=== PATIENT | female | born 1970 | race American Indian/Alaskan Native ===

== ENCOUNTER 2021-04-26 19:26 | Observation (INO) | payer OTHER ==
[2021-04-26] MEDS ORDERED: EPINEPHrine/PF 1 MG/1 ML INJ SUB-Q ONE (19:37)
[2021-04-26] MEDS ORDERED: FAMOTIDINE 20 MG/2 ML INJ IV ONE (19:37)
[2021-04-26] MEDS ORDERED: diphenhydrAMINE 50 MG/ML VIAL IV ONE (19:37)
[2021-04-26] MEDS ORDERED: methylPREDNISolone Sod Succinate 125 MG/2 ML INJ IV ONE (19:37)
--- NOTE | 2021-04-26 19:39 | Emergency Department Report ---
HPI - General Chief Complaint: Allergic Reaction - HPI HPI: 51-year-old obese female with a past medical history of asthma, morbid obesity, PFO, COPD, GERD, and hypertension presents to the hospital with acute allergic reaction that started within 10 to 15 minutes of taking Motrin. Patient has had a similar allergic reaction due to aspirin. Patient has taken Motrin in the pas t without allergic reaction. Patient complains of swelling to lips, tongue, and throat with shortness of breath. Previous history of intubation secondary to asthma allergy. ED Past Medical Hx - Past Medical History Previous Medical History?: Yes Hx Hypertension: Yes Hx GERD: Yes Hx Asthma: Yes Hx COPD: Yes Hx Tuberculosis: No - Surgical History Past Surgical History?: Yes Hx Appendectomy: Yes - Social History Smoking Status: Never Smoker - Medications Home Medications: Home Medications Medication Instructions Recorded Confirmed Last Taken Type Clopidogrel Bisulfate [Clopidogrel] 75 mg PO DAILY 08/11/14 08/11/14 07/27/14 History Metoprolol Tartrate 25 mg PO BID 08/11/14 08/11/14 07/27/14 History Vitamin D2 50,000 units PO QWEEK 08/11/14 08/11/14 07/28/14 History ED Review of Systems ROS: Stated complaint: ALLERGIC REACTION Other details as noted in HPI Comment: All other systems reviewed and negative Physical Exam - Physical Exam Vital Signs: Vital Signs 04/26/21 19:29 Temperature 98.1 F Pulse Rate 79 Respiratory 20 Rate Blood Pressure 178/85 [Left] O2 Sat by Pulse 98 Oximetry Physical Exam: General: No acute distress Head: Atraumatic Face: Swelling to right side of face Eyes: normal appearance ENT: Moist mucous membranes, swelling to the lips, no noticeable tongue swelling, possible swelling to submental area. No visualized swelling to posterior pharynx with use of tongue depressor. Positive hoarseness when speaking Neck: Normal appearance, no midline tenderness Chest: Clear to auscultation bilaterally CV: Regular rate and rhythm Abdomen: Soft, normal bowel sounds, nontender, nondistended, no rebound or guarding Back: Normal inspection Extremity: Normal inspection, full range of motion Neuro: Alert O x 3, no facial asymmetry, speech clear, no gross motor sensory deficit Psych: Appropriate behavior Skin: Generalized hives ED Course Vital Signs 04/26/21 19:29 Temperature 98.1 F Pulse Rate 79 Respiratory 20 Rate Blood Pressure 178/85 [Left] O2 Sat by Pulse 98 Oximetry - Reevaluation(s) Reevaluation #1: 04/26/21 23:37 Patient reevaluated. Patient still feels like there is a lump in her throat still but her voice is less hoarsem - Consultations Consultation #1: 04/26/21 8:45 pm case d/w educational administrator anesthesiologist to inform him of possible intubation assistance. We will call him if needed ED Medical Decision Making - Lab Data Result diagrams: 04/26/21 21:41 04/26/21 21:41 - Medical Decision Making Patient was observed and reevaluated during ED stay. She continues to feel that there is a lump in her throat but throughout ED stay with treatment of Solu- Medrol, Pepcid, Benadryl, epinephrine her voice has become less hoarse and clear. Hives also improved. Difficult airway cart and intubation set up in room in during ED stay. Anesthesia on standby. Patient did not require intubation during ED stay since she seems to be improving however, given history of severe allergic reaction to aspirin requiring intubation patient will be admitted to the hospital for further observation and treatment Critical Care Time: No Critical care attestation.: If time is entered above; I have spent that time in minutes in the direct care of this critically ill patient, excluding procedure time. ED Disposition Clinical Impression: Acute allergic reaction, Hoarseness, Hives, Morbid obesity Disposition: 01 HOME / SELF CARE / HOMELESS Is pt being admited?: Yes Time of Disposition: 23:43
[2021-04-26 22:08] LABS: Basophils % (Auto) 0.2 % (0.0-1.8); Eosinophils # (Auto) 0.1 K/mm3 (0.0-0.4); Eosinophils % (Auto) 1.7 % (0.0-4.3); Hematocrit 39.8 % (30.3-42.9); Hemoglobin 12.5 gm/dl (10.1-14.3); Lymphocytes # (Auto) 3.1 K/mm3 (1.2-5.4); Lymphocytes % (Auto) 36.6 % (13.4-35.0); Mean Corpuscular HGB Conc 32 % (30-34); Mean Corpuscular Volume 93 fl (79-97); Monocytes # (Auto) 0.4 K/mm3 (0.0-0.8); Platelet Count 275 K/mm3 (140-440); Red Blood Count 4.27 M/mm3 (3.65-5.03); Red Cell Distribution Width 14.3 % (13.2-15.2)
[2021-04-26 22:11] LABS: Blood Urea Nitrogen 12 mg/dL (7-17); Calcium 8.6 mg/dL (8.4-10.2); Hemolysis Index 13
[2021-04-26 22:12] LABS: BUN/Creatinine Ratio 24
--- NOTE | 2021-04-27 00:28 | History and Physical Report ---
History of Present Illness Date of examination: 04/26/21 Date of admission: 04/26/21 23:44 Chief complaint: Allergic reaction History of present illness: 51-year-old female with known history of asthma, GERD, hypertension presenting to the emergency room today with complaints of acute allergic reaction started about 10 to 15 minutes after taking Motrin. Patient has known allergy to aspirin and has had a similar episode before which she took aspirin. She raghueve r indicates that she has had Motrin in the past without any reaction. Patient has had swelling of her lips, tongue and throat and accompanying shortness of breath prior to arrival in the emergency room. Patient has had a previous intubation in the past secondary to asthma/allergy. Patient has had some Solu-Medrol, Pepcid and epinephrine with significant improvement. Work-up in the emergency room today, labs were unremarkable. Patient being admitted for further observation. Past History Past Medical History: COPD, hypertension, other (Asthma) Past Surgical History: appendectomy Social history: no significant social history Family history: no significant family history Medications and Allergies Allergies Allergy/AdvReac Type Severity Reaction Status Date / Time aspirin Allergy Swelling/ Verified 08/11/14 10:04 THROAT CLOSES Sulfa (Sulfonamide Allergy Hives Verified 08/11/14 10:04 Antibiotics) Home Medications Medication Instructions Recorded Confirmed Last Taken Type Clopidogrel Bisulfate [Clopidogrel] 75 mg PO DAILY 08/11/14 08/11/14 07/27/14 History Metoprolol Tartrate 25 mg PO BID 08/11/14 08/11/14 07/27/14 History Vitamin D2 50,000 units PO QWEEK 08/11/14 08/11/14 07/28/14 History Active Meds: Active Medications Acetaminophen (Acetaminophen 325 Mg Tab) 650 mg PO Q6H PRN PRN Reason: Pain MILD(1-3)/Fever >100.5/EDGAR Diphenhydramine HCl (Diphenhydramine 50 Mg/Ml Vial) 25 mg IV Q6H PRN PRN Reason: Itching Enoxaparin Sodium (Enoxaparin 40 Mg/0.4 Ml Inj) 40 mg SUB-Q QDAY@2200 DOROTEO; Protocol Sodium Chloride (Nacl 0.9% 1000 Ml) 1,000 mls @ 75 mls/hr IV DIRECT DOROTEO Magnesium Hydroxide (Magnesium Hydroxide (Mom) Oral Liqd Udc) 30 ml PO Q4H PRN PRN Reason: Constipation Morphine Sulfate (Morphine 2 Mg/1 Ml Inj) 2 mg IV Q4H PRN PRN Reason: Pain, Moderate (4-6) Morphine Sulfate (Morphine 4 Mg/1 Ml Inj) 4 mg IV Q4H PRN PRN Reason: Pain , Severe (7-10) Ondansetron HCl (Ondansetron 4 Mg/2 Ml Inj) 4 mg IV Q8H PRN PRN Reason: Nausea And Vomiting Sodium Chloride (Sodium Chloride 0.9% 10 Ml Flush Syringe) 10 ml IV BID DOROTEO Sodium Chloride (Sodium Chloride 0.9% 10 Ml Flush Syringe) 10 ml IV PRN PRN PRN Reason: LINE FLUSH Review of Systems Constitutional: no fever, no chills Ears, nose, mouth and throat: hoarseness, swelling in mouth, swelling in throat, no nasal congestion, no sore throat Cardiovascular: no chest pain, no palpitations Respiratory: shortness of breath, no cough Gastrointestinal: no abdominal pain, no nausea, no vomiting, no diarrhea Genitourinary Female: no pelvic pain, no flank pain, no dysuria, no hematuria Musculoskeletal: no neck pain, no low back pain Integumentary: rash, pruritis Neurological: no headaches, no confusion Psychiatric: no anxiety, no depression Endocrine: no polyphagia, no polydipsia, no polyuria, no nocturia Allergic/Immunologic: urticaria, angioedema Exam - Constitutional Vitals: Temp Pulse Resp BP Pulse Ox 98.1 F 63 20 162/82 99 04/26/21 19:29 04/26/21 23:16 04/26/21 23:16 04/26/21 23:16 04/26/21 23:16 General appearance: Present: no acute distress, well-nourished, obese - EENT Eyes: Present: PERRL, EOM intact ENT: hearing intact, clear oral mucosa, dentition normal - Neck Neck: Present: supple, normal ROM - Respiratory Respiratory effort: normal Respiratory: bilateral: CTA - Cardiovascular Rhythm: regular Heart Sounds: Present: S1 & S2. Absent: gallop, systolic murmur, diastolic murmur, rub, click - Extremities Extremities: no ischemia, pulses intact, pulses symmetrical, No edema, normal temperature, normal color, Full ROM Peripheral Pulses: within normal limits - Abdominal General gastrointestinal: Present: soft, non-tender, non-distended, normal bowel sounds. Absent: mass - Integumentary Integumentary: Present: clear, warm, dry, normal turgor. Absent: rash - Musculoskeletal Musculoskeletal: strength equal bilaterally - Psychiatric Psychiatric: appropriate mood/affect, intact judgment & insight, memory intact, cooperative - Neurologic Neurologic: CNII-XII intact, no focal deficits, moves all extremities Results - Labs CBC & Chem 7: 04/26/21 21:41 04/26/21 21:41 Labs: Abnormal lab results 04/26/21 04/26/21 Range/Units 21:41 21:41 Lymph % (Auto) 36.6 H (13.4-35.0) % Carbon Dioxide 21 L (22-30) mmol/L Creatinine 0.5 L (0.6-1.2) mg/dL Glucose 133 H (65-100) mg/dL Assessment and Plan - Patient Problems (1) Acute allergic reaction Current Visit: Yes Status: Acute Plan to address problem: Patient has had epinephrine, Pepcid and Solu-Medrol with significant improvement. We will monitor closely. (2) Morbid obesity Current Visit: Yes Status: Acute Plan to address problem: Lifestyle modification encouraged. Dietary consult requested. (3) DVT prophylaxis Current Visit: Yes Status: Acute Plan to address problem: Patient placed on subcutaneous Lovenox. (4) Full code status Current Visit: Yes Status: Acute Plan to address problem: Patient is full code.
[2021-04-27] MEDS ORDERED: ONDANSETRON 4 MG/2 ML INJ IV PRN (01:00)
[2021-04-27] MEDS ORDERED: ACETAMINOPHEN 325 MG TAB PO PRN (01:00)
[2021-04-27] MEDS ORDERED: MAGNESIUM HYDROXIDE (MOM) ORAL LIQD UDC PO PRN (01:00)
[2021-04-27] MEDS ORDERED: MORPHINE 2 MG/1 ML INJ IV PRN (01:00)
[2021-04-27] MEDS ORDERED: MORPHINE 4 MG/1 ML INJ IV PRN (01:00)
[2021-04-27] MEDS: diphenhydrAMINE 50 MG/ML VIAL IV PRN ×3 (02:53→19:23)
[2021-04-27] MEDS ORDERED: DEXAMETHASONE 4 MG TAB PO ONE (13:00)
--- NOTE | 2021-04-27 13:18 | Consultation ---
History of Present Illness Consult date: 04/27/21 Reason for consult: dyspnea, other History of present illness: History of present illness: 51-year-old female with known history of asthma, GERD, hypertension presenting to the emergency room today with complaints of acute allergic reaction started about 10 to 15 minutes after taking Motrin. Patient has known allergy to aspirin and has had a similar episode before which she took aspirin. She however indicates that she has had Motrin in the past without any reaction. Patient has had swelling of her lips, tongue and throat and accompanying shortness of breath prior to arrival in the emergency room. Patient reports she has been allergic to aspirin in the past with similar reaction. However, she never had reaction to Motrin which she takes on a regular basis. Patient reports since admission symptoms have improved to some degree however she is still having trouble swallowing and feels her lips are still swollen Patient has had a previous intubation in the past secondary to asthma/allergy. Patient has had some Solu-Medrol, Pepcid and epinephrine with significant improvement. Work-up in the emergency room today, labs were unremarkable. Patient being admitted for further observation. Patient has history of asthma and has been on Flovent and albuterol on as needed basis Past History Past Medical History: hypertension, other (Asthma, ) Past Surgical History: appendectomy, Other (Has cardiac surgery for I believe patent foramen ovale.) Social history: no significant social history, other (Non-smoker nondrinker) Family history: no significant family history Medications and Allergies Allergies Allergy/AdvReac Type Severity Reaction Status Date / Time aspirin Allergy Swelling/ Verified 08/11/14 10:04 THROAT CLOSES Sulfa (Sulfonamide Allergy Hives Verified 08/11/14 10:04 Antibiotics) Home Medications Medication Instructions Recorded Confirmed Last Taken Type Clopidogrel Bisulfate [Clopidogrel] 75 mg PO DAILY 08/11/14 04/27/21 07/27/14 History Metoprolol Tartrate 25 mg PO BID 08/11/14 04/27/21 07/27/14 History Vitamin D2 50,000 units PO QWEEK 08/11/14 04/27/21 07/28/14 History Active Meds: Active Medications Acetaminophen (Acetaminophen 325 Mg Tab) 650 mg PO Q6H PRN PRN Reason: Pain MILD(1-3)/Fever >100.5/EDGAR Clopidogrel Bisulfate (Clopidogrel 75 Mg Tab) 75 mg PO DAILY DOROTEO Diphenhydramine HCl (Diphenhydramine 50 Mg/Ml Vial) 25 mg IV Q6H PRN PRN Reason: Itching Last Admin: 04/27/21 10:53 Dose: 25 mg Documented by: Enoxaparin Sodium (Enoxaparin 40 Mg/0.4 Ml Inj) 40 mg SUB-Q QDAY@2200 DOROETO; Protocol Sodium Chloride (Nacl 0.9% 1000 Ml) 1,000 mls @ 75 mls/hr IV DIRECT DOROTEO Magnesium Hydroxide (Magnesium Hydroxide (Mom) Oral Liqd Udc) 30 ml PO Q4H PRN PRN Reason: Constipation Metoprolol Tartrate (Metoprolol Tartrate 25 Mg Tab) 25 mg PO BID DOROTEO Morphine Sulfate (Morphine 2 Mg/1 Ml Inj) 2 mg IV Q4H PRN PRN Reason: Pain, Moderate (4-6) Morphine Sulfate (Morphine 4 Mg/1 Ml Inj) 4 mg IV Q4H PRN PRN Reason: Pain , Severe (7-10) Ondansetron HCl (Ondansetron 4 Mg/2 Ml Inj) 4 mg IV Q8H PRN PRN Reason: Nausea And Vomiting Review of Systems All systems: negative Constitutional: weight gain Ears, nose, mouth and throat: swelling in mouth, swelling in throat, other (Difficulty swallowing) Physical Examination Vital signs: Vital Signs Temp Pulse Resp BP Pulse Ox 98.1 F 79 20 178/85 98 04/26/21 19:29 04/26/21 19:29 04/26/21 19:29 04/26/21 19:29 04/26/21 19:29 General appearance: no acute distress, other (Moderate to severely obese) Eyes: non-icteric ENT: oropharynx moist, other (Crowded oropharynx, mild swelling of lips) Neck: supple, no lymphadenopathy, no JVD Ascultation: Bilateral: clear Cardiovascular: regular rate and rhythm Gastrointestinal: normoactive bowel sounds, soft, non-tender, other (Obese) Integumentary: normal Extremities: no cyanosis, no edema, pink and warm Musculoskeletal: no deformities Gait: other normal mental status (Not examined), non-focal exam mood appropriate Results - Laboratory Findings CBC and BMP: 04/26/21 21:41 04/26/21 21:41 Abnormal lab findings: Abnormal Labs 04/26/21 04/26/21 21:41 21:41 Lymph % (Auto) 36.6 H Carbon Dioxide 21 L Creatinine 0.5 L Glucose 133 H Assessment and Plan Impression: Angioedema secondary to NSAID History of aspirin allergy Mild intermittent uncomplicated asthma Obesity Hypertension Suspect obstructive sleep apnea Recommendation: Patient to be treated with IV steroids, antihistamines, H2 jonas such as Pepcid and Benadryl on as needed basis. Limit oral intake to liquids until swallow swallowing is improved. Consider adding Singulair which is seems to be effective with people with aspirin allergy. Consider further evaluation and screening for obstructive sleep apnea.
[2021-04-27] MEDS: methylPREDNISolone Sod Succinate 40 MG/1 ML INJ IV SCH (14:01)
--- NOTE | 2021-04-27 15:10 | Discharge Summary ---
Providers - Providers Date of Admission: 04/26/21 23:44 Date of discharge: 04/27/21 Attending physician: JOE RODRÍGUEZ 04/27/21 00:17 Consult to Dietitian/Nutrition [CONS] Routine Physician Instructions: Reason For Exam: Reason for Consult: Diet education Consult to Physician [CONS] Routine Comment: Consulting Provider: DESTINY CUMMINGS Physician Instructions: Reason For Exam: Acute Allergic reaction, Resp. Distress Primary care physician: SHAHAB VILLALPANDO MD Hospitalization Disposition: HOME / SELF CARE / HOMELESS Final Discharge Diagnosis (Prints w/discharge instructions): Angioedema/allergic reaction to ibuprofen/improved. History of aspirin allergy. Morbid obesity ; BMI 48.3. suspected obstructive sleep apnea. GERD. History of bronchial asthma. Hypertension Core Measure Documentation - Palliative Care Palliative Care/ Comfort Measures: Not Applicable - Core Measures Any of the following diagnoses?: none Exam - Constitutional Vitals: Temp Pulse Resp BP Pulse Ox 98.1 F 65 13 151/81 98 04/26/21 19:29 04/27/21 14:46 04/27/21 14:46 04/27/21 14:46 04/27/21 14:46 General appearance: Present: no acute distress, well-nourished - EENT Eyes: Present: PERRL, EOM intact - Neck Neck: Present: supple, normal ROM - Respiratory Respiratory effort: normal Respiratory: bilateral: diminished, negative: rales, rhonchi, wheezing - Cardiovascular Rhythm: regular Heart Sounds: Present: S1 & S2 - Extremities Extremities: no ischemia, No edema - Abdominal General gastrointestinal: Present: soft, non-tender, non-distended, normal bowel sounds Plan Follow up with: SHAHAB FRANKLIN MD [Primary Care Provider] - 3-5 Days
--- NOTE | 2021-04-27 15:39 | Progress Note ---
Assessment and Plan Assessment and plan: --Angioedema/ acute allergic reaction to ibuprofen Current Visit: Yes Status: Acute Patient received epinephrine, Pepcid and Solu-Medrol with significant improvement. We will continue IV Solu-Medrol, Benadryl Pepcid And supportive care Patient has history of aspirin allergy Clear liquids/soft diet as tolerated -- morbid obesity BMI 48.3 Current Visit: Yes Status: Acute Lifestyle modification encouraged. Dietary modification, exercise as tolerated And weight reduction when medically stable --History of bronchial asthma; Current Visit: Yes Status: Chronic Pulmonary evaluation noted and appreciated --Hypertension; moderate control Current Visit: Yes Status: Chronic DC metoprolol, add hydralazine, closely monitor --GERD Current Visit: Yes Status: Chronic Pepcid --possible obstructive sleep apnea Current Visit: Yes Status: Chronic Patient needs outpatient sleep study possible CPAP BiPAP at night --DVT prophylaxis Current Visit: Yes Status: Acute Subcutaneous Lovenox. --full code status Current Visit: Yes Status: Acute Patient is full code. Closely monitor the patient and adjust management as needed Plan of care reviewed with the patient and her nurse Possible discharge in 1 to 2 days if stable History Interval history: I have seen and examined the patient in ER awaiting room assignment Patient was admitted with allergic reaction/angioedema to ibuprofen Feels slightly better, facial and oral swelling significantly improved. Denies any shortness of breath or difficulty swallowing Hospitalist Physical - Constitutional Vitals: Temp Pulse Resp BP Pulse Ox 98.1 F 65 13 151/81 98 04/26/21 19:29 04/27/21 14:46 04/27/21 14:46 04/27/21 14:46 04/27/21 14:46 General appearance: Present: no acute distress, well-nourished, obese (Morbidly obese) - EENT Eyes: Present: PERRL, EOM intact - Neck Neck: Present: other (Mild facial swelling) - Respiratory Respiratory effort: normal Respiratory: bilateral: CTA, diminished, negative: rales, rhonchi, wheezing - Cardiovascular Rhythm: regular Heart Sounds: Present: S1 & S2 - Extremities Extremities: no ischemia, No edema - Abdominal General gastrointestinal: soft, non-tender, non-distended, normal bowel sounds - Integumentary Integumentary: Present: clear, warm - Psychiatric Psychiatric: appropriate mood/affect, cooperative - Neurologic Neurologic: moves all extremities Results - Labs CBC & Chem 7: 04/26/21 21:41 04/26/21 21:41 Labs: Laboratory Last Values WBC 8.5 K/mm3 (4.5-11.0) 04/26/21 21:41 RBC 4.27 M/mm3 (3.65-5.03) 04/26/21 21:41 Hgb 12.5 gm/dl (10.1-14.3) 04/26/21 21:41 Hct 39.8 % (30.3-42.9) 04/26/21 21:41 MCV 93 fl (79-97) 04/26/21 21:41 MCH 29 pg (28-32) 04/26/21 21:41 MCHC 32 % (30-34) 04/26/21 21:41 RDW 14.3 % (13.2-15.2) 04/26/21 21:41 Plt Count 275 K/mm3 (140-440) 04/26/21 21:41 Lymph % (Auto) 36.6 % (13.4-35.0) H 04/26/21 21:41 [place] % (Auto) 5.0 % (0.0-7.3) 04/26/21 21:41 Eos % (Auto) 1.7 % (0.0-4.3) 04/26/21 21:41 Baso % (Auto) 0.2 % (0.0-1.8) 04/26/21 21:41 Lymph # (Auto) 3.1 K/mm3 (1.2-5.4) 04/26/21 21:41 [place] # (Auto) 0.4 K/mm3 (0.0-0.8) 04/26/21 21:41 Eos # (Auto) 0.1 K/mm3 (0.0-0.4) 04/26/21 21:41 Baso # (Auto) 0.0 K/mm3 (0.0-0.1) 04/26/21 21:41 Seg Neutrophils % 56.5 % (40.0-70.0) 04/26/21 21:41 Seg Neutrophils # 4.8 K/mm3 (1.8-7.7) 04/26/21 21:41 Sodium 139 mmol/L (137-145) 04/26/21 21:41 Potassium 3.8 mmol/L (3.6-5.0) 04/26/21 21:41 Chloride 104.7 mmol/L (98-107) 04/26/21 21:41 Carbon Dioxide 21 mmol/L (22-30) L 04/26/21 21:41 Anion Gap 17 mmol/L 04/26/21 21:41 BUN 12 mg/dL (7-17) 04/26/21 21:41 Creatinine 0.5 mg/dL (0.6-1.2) L 04/26/21 21:41 Estimated GFR > 60 ml/min 04/26/21 21:41 BUN/Creatinine Ratio 24 % 04/26/21 21:41 Glucose 133 mg/dL (65-100) H 04/26/21 21:41 Calcium 8.6 mg/dL (8.4-10.2) 04/26/21 21:41 Active Medications - Current Medications Current Medications: Generic Name Dose Route Start Last Admin Trade Name Freq PRN Reason Stop Dose Admin Acetaminophen 650 mg 04/27/21 01:00 Acetaminophen 325 Mg Tab PO Q6H PRN Pain MILD(1-3)/Fever >100.5/EDGAR Cetirizine HCl 10 mg 04/28/21 10:00 Cetirizine 10 Mg Tab PO QDAY [facility] Clopidogrel Bisulfate 75 mg 04/28/21 10:00 Clopidogrel 75 Mg Tab PO DAILY [facility] Diphenhydramine HCl 25 mg 04/27/21 01:00 04/27/21 10:53 Diphenhydramine 50 Mg/Ml Vial IV 25 mg Q6H PRN Administration Itching Enoxaparin Sodium 40 mg 04/27/21 22:00 Enoxaparin 40 Mg/0.4 Ml Inj SUB-Q QDAY@2200 [facility] Protocol Famotidine 20 mg 04/27/21 22:00 Famotidine 20 Mg Tab PO BID [facility] Sodium Chloride 1,000 mls @ 75 mls/hr 04/27/21 01:00 Nacl 0.9% 1000 Ml IV DIRECT DOROTEO Magnesium Hydroxide 30 ml 04/27/21 01:00 Magnesium Hydroxide (Mom) Oral Liqd Udc PO Q4H PRN Constipation Methylprednisolone Sodium Succinate 40 mg 04/27/21 14:00 04/27/21 14:01 Methylprednisolone Sod Succinate 40 Mg/1 Ml Inj IV 40 mg Q8H DOROTEO Administration Metoprolol Tartrate 25 mg 04/27/21 22:00 Metoprolol Tartrate 25 Mg Tab PO BID DOROTEO Montelukast Sodium 10 mg 04/27/21 22:00 Montelukast 10 Mg Tab PO QHS DOROTEO Morphine Sulfate 2 mg 04/27/21 01:00 Morphine 2 Mg/1 Ml Inj IV Q4H PRN Pain, Moderate (4-6) Morphine Sulfate 4 mg 04/27/21 01:00 Morphine 4 Mg/1 Ml Inj IV Q4H PRN Pain , Severe (7-10) Ondansetron HCl 4 mg 04/27/21 01:00 Ondansetron 4 Mg/2 Ml Inj IV Q8H PRN Nausea And Vomiting Nutrition/Malnutrition Assess - Dietary Evaluation Nutrition/Malnutrition Findings: Nutrition Notes Start: 04/27/21 13:00 Freq: Status: Active Protocol: Document 04/27/21 13:00 [facility] (Rec: 04/27/21 13:01 [facility] [id number]) Nutrition Notes Need for Assessment generated from: MD Order,Education Initial or Follow up Brief Note Current Diet Cl liq Subjective/Other Information RD consulted for diet education. Pt in ED at this time. Nutrition Intervention Follow-Up By: 05/02/21 Additional Comments F/U: diet advancement, transfer to medical floor, diet education needs
[2021-04-27] MEDS ORDERED: hydrALAZINE 20 MG/1 ML INJ IV PRN (15:48)
[2021-04-27] MEDS: hydrALAZINE 25 MG TAB PO SCH ×2 (17:12→21:50)
[2021-04-27] MEDS: SODIUM CHLORIDE 0.9% 1000 ML 1,000 ML IV SCH (20:08)
[2021-04-27] MEDS: FAMOTIDINE 20 MG TAB PO SCH (21:45)
[2021-04-27] MEDS ORDERED: MONTELUKAST 10 MG TAB PO SCH (22:00)
[2021-04-27] MEDS ORDERED: METOPROLOL TARTRATE 25 MG TAB PO SCH (22:00)
[2021-04-27] MEDS ORDERED: ENOXAPARIN 40 MG/0.4 ML INJ SUB-Q SCH (22:00)
[2021-04-28] MEDS: methylPREDNISolone Sod Succinate 40 MG/1 ML INJ IV SCH ×3 (00:54→14:06)
[2021-04-28] MEDS: hydrALAZINE 25 MG TAB PO SCH ×2 (06:27→14:06)
[2021-04-28] MEDS: FAMOTIDINE 20 MG TAB PO SCH (09:15)
[2021-04-28] MEDS: SODIUM CHLORIDE 0.9% 1000 ML 1,000 ML IV SCH (09:20)
[2021-04-28] MEDS ORDERED: CLOPIDOGREL 75 MG TAB PO SCH (10:00)
[2021-04-28] MEDS ORDERED: CETIRIZINE 10 MG TAB PO SCH (10:00)
--- NOTE | 2021-04-28 13:11 | Progress Note ---
Assessment and Plan Impression: Angioedema secondary to NSAID History of aspirin allergy Mild intermittent uncomplicated asthma Obesity Hypertension Suspect obstructive sleep apnea Recommendation: Patient patient can go home on oral prednisone taper, antihistamines, H2 jonas such as Pepcid and Benadryl on as needed basis. Recommended to follow-up in our office. Consider adding Singulair which is seems to be effective with people with aspirin allergy. Consider further evaluation and screening for obstructive sleep apnea. Subjective Date of service: 04/28/21 Interval history: Patient feeling better swallowing has improved. Objective Vital Signs - 12hr 04/28/21 04/28/21 04:57 08:01 Temperature 97.8 F Pulse Rate 56 L Respiratory 18 Rate Blood Pressure 151/79 O2 Sat by Pulse 94 96 Oximetry Constitutional: no acute distress, other (Moderate to severely obese) Eyes: non-icteric ENT: oropharynx moist, other (Crowded oropharynx, mild swelling of lips) Neck: supple, no lymphadenopathy, no JVD Ascultation: Bilateral: clear Cardiovascular: regular rate and rhythm Gastrointestinal: normoactive bowel sounds, soft, non-tender, other (Obese) Integumentary: normal Extremities: no cyanosis, no edema, pink and warm Neurologic: normal mental status (Not examined), non-focal exam Psychiatric: mood appropriate CBC and BMP: 04/26/21 21:41 04/26/21 21:41 Abnormal lab findings: Abnormal Labs 04/26/21 12 21:41 21:41 Lymph % (Auto) 36.6 H Carbon Dioxide 21 L Creatinine 0.5 L Glucose 133 H
--- NOTE | 2021-04-28 13:55 | Discharge Summary ---
Providers - Providers Date of Admission: 04/26/21 23:44 Date of discharge: 04/28/21 Attending physician: JOE RODRÍGUEZ 04/27/21 00:17 Consult to Dietitian/Nutrition [CONS] Routine Physician Instructions: Reason For Exam: Reason for Consult: Diet education Consult to Physician [CONS] Routine Comment: Consulting Provider: DESTINY CUMMINGS Physician Instructions: Reason For Exam: Acute Allergic reaction, Resp. Distress [facility] Condition: Stable Hospital course: --Angioedema/ acute allergic reaction to ibuprofen Current Visit: Yes Status: Acute Patient received epinephrine, Pepcid and Solu-Medrol with significant improvement. We will continue IV Solu-Medrol, Benadryl Pepcid And supportive care Patient has history of aspirin allergy Clear liquids/soft diet as tolerated -- morbid obesity BMI 48.3 Current Visit: Yes Status: Acute Lifestyle modification encouraged. Dietary modification, exercise as tolerated And weight reduction when medically stable --History of bronchial asthma; Current Visit: Yes Status: Chronic Pulmonary evaluation noted and appreciated --Hypertension; moderate control Current Visit: Yes Status: Chronic DC metoprolol, add hydralazine, closely monitor --GERD Current Visit: Yes Status: Chronic Pepcid --possible obstructive sleep apnea Current Visit: Yes Status: Chronic Patient needs outpatient sleep study possible CPAP BiPAP at night Disposition: 01 HOME / SELF CARE / HOMELESS Final Discharge Diagnosis (Prints w/discharge instructions): Angioedema due to ibuprofen. Drug allergy to ibuprofen. History of bronchial asthma/stable. Hypertension moderate control. Morbid obesity; BMI 48.3. Possible obstructive sleep apnea. GERD Time spent for discharge: 40 min Core Measure Documentation - Palliative Care Palliative Care/ Comfort Measures: Not Applicable - Core Measures Any of the following diagnoses?: none Exam - Constitutional Vitals: Temp Pulse Resp BP Pulse Ox 97.8 F 56 L 18 151/79 96 04/28/21 04:57 04/28/21 04:57 04/28/21 04:57 04/28/21 04:57 04/28/21 08:01 General appearance: Present: no acute distress, well-nourished - EENT Eyes: Present: PERRL, EOM intact - Neck Neck: Present: supple, normal ROM - Respiratory Respiratory effort: normal Respiratory: bilateral: diminished, negative: rales, rhonchi, wheezing - Cardiovascular Rhythm: regular Heart Sounds: Present: S1 & S2 - Extremities Extremities: no ischemia, No edema - Abdominal General gastrointestinal: Present: soft, non-tender, non-distended, normal bowel sounds - Integumentary Integumentary: Present: clear, warm - Musculoskeletal Musculoskeletal: strength equal bilaterally, generalized weakness - Psychiatric Psychiatric: appropriate mood/affect, cooperative - Neurologic Neurologic: CNII-XII intact, moves all extremities Plan Activity: advance as tolerated Diet: other (Cardiac diet) Additional Instructions: Advised strictly not to take aspirin, ibuprofen, sulfonamide group of antibiotics[you are allergic to these medications]. if you have worsening symptoms contact MD or go to the nearest emergency room as needed. Advised to follow primary care physician and private eap specialist per schedule. You need sleep study at eap specialist office to rule out obstructive sleep apnea, and to know the need for CPAP/BiPAP at night. Advised diet modification, lifestyle changes, exercise as tolerated and weight reduction when you are medically stable. You may benefit from outpatient evaluation by bariatric surgical services for weight reduction program when you are medically stable [facility] [Primary Care Provider] - 3-5 Days DESTINY CUMMINGS MD [Staff Physician] - 7 Days Prescriptions: hydrALAZINE [Apresoline TAB] 25 mg PO Q8HR #90 tablet diphenhydrAMINE [Benadryl CAP] 25 mg PO Q6HR PRN #20 capsule PRN Reason: Allergic Reaction Famotidine/Ca Carb/Mag Hydrox [Pepcid Complete Tablet Chew] 1 each PO BID #20 tab.chew Clopidogrel [Plavix] 75 mg PO QDAY #30 tablet predniSONE 6 tab PO QDAY #39 tab Albuterol Mdi (or & Nicu Only) [ProAir HFA Inhaler] 2 puff IH QID PRN #8.5 gram PRN Reason: Shortness Of Breath Montelukast [Singulair] 10 mg PO QHS #30 tablet
[2021-04-28 14:02] VITALS: BP 155/78
== END 2021-04-28 17:15 | disposition home or self-care (01) ==
LOC: ED 19:26 → IMCU 23:44 → 4A 04-27 16:00 → 3A 04-27 17:20
PROVIDERS: ADMIT Internal Medicine Geriatric Medicine; ATTEND Internal Medicine
DX: T78.40XA Allergy, unspecified, initial encounter (principal); T39.315A Adverse effect of propionic acid derivatives, initial encounter; I10 Essential (primary) hypertension; J44.9 Chronic obstructive pulmonary disease, unspecified; E66.01 Morbid (severe) obesity due to excess calories; K21.9 Gastro-esophageal reflux disease without esophagitis; R49.0 Dysphonia; L50.9 Urticaria, unspecified; Z90.49 Acquired absence of other specified parts of digestive tract; Z79.899 Other long term (current) drug therapy; Z98.890 Other specified postprocedural states; Z68.42 Body mass index [BMI] 45.0-49.9, adult
CPT/HCPCS: 36415; 80048; 85025; 96361; 96372; 96374; 96375; 96376; 99284; G0378; J0171; J1200; J1650; J2920; J2930; J3490; J7030; J8540; Q0162